=== PATIENT | male | born 1965 | race Caucasian/White ===

== ENCOUNTER → 2018-10-13 15:31 | Outpatient (CLI) | payer OTHER, SELFPAY ==
--- NOTE | 2018-10-13 15:40 | US_ITS ---
US Testicular ORDERING PHYSICIAN : Maria Ines Soto APRN PATIENT AGE: 52 years GENDER: Male HISTORY:ITS.REASON: DYSURIA, PARESTHESIAS COMPARISON: None TECHNIQUE: Routine FINDINGS: Right testicle is 2.3 x 4.7 x 3.0 cm. Left testicle is 2.3 x 4.6 x 2.7 cm. The echogenic appearance of both testicles and epididymal areas appear normal. There is normal blood flow to both testicles. There are no abnormal fluid collections. IMPRESSION: Normal exam. No acute process.
== END ==
PROVIDERS: PCP Nurse Practitioner; Visit Provider Nurse Practitioner
DX: R30.0 Dysuria (principal); R20.2 Paresthesia of skin
CPT/HCPCS: 76870

== ENCOUNTER → 2020-05-22 11:38 | Outpatient (CLI) | payer OTHER, SELFPAY ==
--- NOTE | 2020-05-22 12:10 | XR_ITS ---
PROCEDURE: XR HAND RT MIN 3V CLINICAL INDICATION: RT HAND PAIN/SWELLING COMPARISON: No exams were available for comparison FINDINGS: No fracture or dislocation. No lytic or blastic change. There is normal mineralization. There are osteoarthritic changes at the 2nd and 3rd metacarpophalangeal junction. There is some irregularity of the tuft of the distal phalanx of the 3rd digit which appears chronic. No acute fracture or dislocation. Other findings:None. 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
[2020-05-22 12:31] LABS: Basophils % 0.3 % (0.1-2.0); Eosinophils # 0.1 K/mm3 (0.0-0.4); Hematocrit 46.8 % (42.0-52.0); Hemoglobin 15.7 g/dL (14.1-18.0); Lymphocytes # 1.4 K/mm3 (0.7-4.5); Lymphocytes % 20.6 % (10-50); Mean Corpuscular HGB Conc 33.5 g/dL (31.8-35.4); Mean Corpuscular Hemoglobin 28.8 pg (27.0-31.2); Mean Platelet Volume 8.3 fl (7.4-10.4); Monocytes # 0.3 K/mm3 (0.1-1.0); Neutrophils # 5.1 K/mm3 (1.8-7.8); Neutrophils % 73.1 % (37.0-80.0); Platelet Count 240 K/mm3 (142-424); Red Blood Count 5.44 M/mm3 (4.60-6.20); Red Cell Distribution Width 14.3 % (11.5-17.5); White Blood Count 6.9 K/mm3 (4.8-10.8)
[2020-05-22 13:04] LABS: C-Reactive Protein 1.3 mg/L (0-4)
[2020-05-22 14:28] LABS: Erythrocyte Sedimentation Rate 7 mm/hr (0-20)
[2020-05-23 08:36] LABS: RA Latex Turbid. <10.0 IU/mL (0.0-13.9)
[2020-05-24 14:27] LABS: Antinuclear Antibodies, IFA Positive (.)
== END ==
PROVIDERS: PCP Nurse Practitioner Family; Visit Provider Nurse Practitioner Family
DX: M79.641 Pain in right hand (principal); M79.89 Other specified soft tissue disorders
CPT/HCPCS: 36415; 73130; 84550; 85025; 85651; 86038; 86140; 86431

== ENCOUNTER → 2021-03-27 11:38 | Outpatient (CLI) | payer OTHER, SELFPAY | PROVIDERS: PCP Family Medicine; Visit Provider Nurse Practitioner | DX: Z20.822 Contact with and (suspected) exposure to COVID-19 (principal) | CPT/HCPCS: C9803; U0003; U0005 ==

== ENCOUNTER → 2021-04-12 08:35 | Outpatient (CLI) | payer OTHER, SELFPAY | PROVIDERS: PCP Family Medicine; Visit Provider Nurse Practitioner | DX: U07.1 COVID-19 (principal) | CPT/HCPCS: C9803; U0003; U0005 ==

== ENCOUNTER → 2022-01-07 15:25 | Outpatient (POV) | payer OTHER, SELFPAY | PROVIDERS: Visit Provider Dermatology | DX: Z00.00 Encounter for general adult medical examination without abnormal findings (principal) ==

== ENCOUNTER 2023-12-25 19:38 | Emergency (ER) | payer SELFPAY ==
[2023-12-25 19:48] VITALS: BP 164/87; PULSE 91; RESP 18; TEMP 36.7; O2SAT 99; BMI 28.0
--- NOTE | 2023-12-25 19:50 | ED_ITS ---
Discharge Plan Disposition Patient Disposition: Home, Self-Care Referrals Follow up/Referrals: Emilee Bautista MD [Primary Care Provider] - See instructions Activity Restrictions/Add. Instructions Additional Instructions/Restrictions: Return to PCP for suture removal in 7 to 10 days. Do not get area wet or submerged in water. Make sure to keep dressing on area at all times. Do not put full weight on your foot. Be careful to not pull the stitches out. Any problems or concerns please return to the ED or see your PCP. Clinical Impressions Clinical Impression: Laceration Stand Alone Forms Stand Alone Forms: Work/School Release Instructions Patient Instructions: DI for Laceration Repair Print Language Print Language: Upper Sorbian Discharge ED Provider: Venu Rea Adult HPI <Mirna Soto (ED), [employer] - Last Filed: 12/25/23 21:07> General Chief complaint: Wound/Laceration Stated complaint: AO 12/25/23 8855 laceration Right fourth toe Time Seen by Provider: 12/25/23 19:42 History of Present Illness HPI narrative: 57-year-old male presents to the ED today for complaint of laceration to right fourth posterior toe after stepping on a dog gate. His toe went through the metal on the gate. He has stopped the bleeding and has it wrapped. He has no other complaint today Related Data Allergies Allergy/AdvReac Type Severity Reaction Status Date / Time Penicillin Allergy Unknown Uncoded 04/07/17 14:44 PFSH <Mirna Soto (ED), [employer] - Last Filed: 12/25/23 21:07> [facility] Disclaimer: The information contained in this section may have been updated after the patient was seen, as this information can be updated by other users. Social History (Updated 12/25/23 @ 21:07 by Mirna Soto (ED), [employer]) Smoking Status: Never smoker alcohol intake: current current occupational status: other Travel in the last 8 weeks: None <Mirna Soto (ED), [employer] - Last Filed: 12/25/23 21:07> ROS Obtained: Yes Systems reviewed as appropriate & no additional complaints except as documented Physical Exam <Mirna Soto (ED), [employer] - Last Filed: 12/25/23 21:07> General General appearance: alert and in no apparent distress Head Head exam: atraumatic and normocephalic Eye Eye exam: Present normal appearance, PERRL and EOMI ENT ENT exam: Present normal exam, normal oropharynx and mucous membranes moist Neck Neck exam: Present normal inspection, full ROM and trachea midline Chest Chest inspection: Present normal inspection Respiratory Respiratory exam: Present normal lung sounds bilaterally Cardiovascular Cardiovascular exam: Present regular rate, normal rhythm, normal heart sounds, +S1 and +S2 Extremities Exam Extremities exam: Present full ROM and normal capillary refill Back Exam Back exam: Present normal inspection Neurological Exam Neurological exam: Present alert, oriented X3 and normal gait Skin Skin exam: Present warm, dry, intact and other (laceration to right 4th great toe posterior) Medical Decision Making <Mirna Soto (ED), [employer] - Last Filed: 12/25/23 21:07> [facility] Inquiry Pt receiving controlled substance: No Vital Signs: 12/25/23 19:48 12/25/23 21:15 Temperature 98.1 F 98.1 F Temperature Source Oral Oral Pulse Rate 65 Pulse Rate [Left Radial] 91 H Respiratory Rate 18 18 Blood Pressure 116/81 Blood Pressure [Right Arm] 164/87 H Blood Pressure Mean [Right Arm] 112 Blood Pressure Source Automatic Cuff Blood Pressure Source [Right Arm] Automatic Cuff Blood Pressure Position Sitting Blood Pressure Position [Right Arm] Sitting 02 Sat by Pulse Oximetry 99 Oxygen Delivery Method Room Air Room Air Orders (Tests/Meds): ED MEDICATIONS Discontinued Medications Generic Name Dose Route Start Last Admin Trade Name Freq PRN Reason Stop Dose Admin Tetanus/Reduced Diphtheria/Acell Pertussis 0.5 ml 12/25/23 19:48 12/25/23 19:59 Tet/Diphth/Pert-Adult 0.5ml Syringe IM 12/25/23 19:49 0.5 ml .ONCE ONE Administration ORDERS Category Date Time Status Foot XR right 2 views [XR foot RT 2V] Stat Exams 12/25/23 20:24 Completed Medical Decision Narrative: Insert review patient is a 57-year-old male presenting to the emergency department for evaluation of laceration of right fourth toe. Patient is [hemodynamically stable and nontoxic-appearing upon arrival, afebrile]. Differential diagnosis includes[toe fracture versus laceration among others]. Workup will be conducted including and considering hematological labs but these were not needed as patient was here for a laceration. However we did do an x- ray of his right foot to ensure that he has no fracture. Initial inventions include washing out his laceration with normal saline, ordering an x-ray and so incus laceration.. Initial x-ray reviewed by me preliminary is negative. Official reading was negative. Patient's wound was repaired and dressed and patient is comfortable. Patient given return precautions and he is to return to [facility] for suture removal in 7 to 10 days. <Venu Rea MD - Last Filed: 12/25/23 21:23> Vital Signs: 12/25/23 19:48 12/25/23 21:15 Temperature 98.1 F 98.1 F Temperature Source Oral Oral Pulse Rate 65 Pulse Rate [Left Radial] 91 H Respiratory Rate 18 18 Blood Pressure 116/81 Blood Pressure [Right Arm] 164/87 H Blood Pressure Mean [Right Arm] 112 Blood Pressure Source Automatic Cuff Blood Pressure Source [Right Arm] Automatic Cuff Blood Pressure Position Sitting Blood Pressure Position [Right Arm] Sitting 02 Sat by Pulse Oximetry 99 Oxygen Delivery Method Room Air Room Air Orders (Tests/Meds): ED MEDICATIONS Discontinued Medications Generic Name Dose Route Start Last Admin Trade Name Freq PRN Reason Stop Dose Admin Tetanus/Reduced Diphtheria/Acell Pertussis 0.5 ml 12/25/23 19:48 12/25/23 19:59 Tet/Diphth/Pert-Adult 0.5ml Syringe IM 12/25/23 19:49 0.5 ml .ONCE ONE Administration ORDERS Category Date Time Status Foot XR right 2 views [XR foot RT 2V] Stat Exams 12/25/23 20:24 Completed Medical Decision Narrative: Insert review patient is a 57-year-old male presenting to the emergency department for evaluation of laceration of right fourth toe. Patient is [hemodynamically stable and nontoxic-appearing upon arrival, afebrile]. Differential diagnosis includes[toe fracture versus laceration among others]. Workup will be conducted including and considering hematological labs but these were not needed as patient was here for a laceration. However we did do an x- ray of his right foot to ensure that he has no fracture. Initial inventions include washing out his laceration with normal saline, ordering an x-ray and so incus laceration.. Initial x-ray reviewed by me preliminary is negative. Official reading was negative. Patient's wound was repaired and dressed and patient is comfortable. Patient given return precautions and he is to return to PCP for suture removal in 7 to 10 days. I was consulted by the VIRGIL, and we discussed the complexity of the problems being addressed.I approved the treatment and management plan for this patient?s care in the Emergency Department, thus performing a substantive portion of the medical decision making.Signed, Venu Rea MD Procedures <Mirna Soto (ED), [employer] - Last Filed: 12/25/23 21:07> Laceration Laceration 1: Site: toe Side (If applicable): right Size (cm): 2 Description: clean Depth: simple, single layer Local Anesthetic: lidocaine 1% Amount of anesthesia used (mL): 5 Pre-repair: irrigated extensively Skin layer closed with: vicryl Size (cm): 4-0 Number of sutures: 8 Technique: simple, interrupted Critical Care <Mirna Soto (ED), [employer] - Last Filed: 12/25/23 21:07> Critical Care Time Critical Care Time: No
[2023-12-25] MEDS: TET/DIPHTH/PERT-ADULT 0.5ML SYRINGE 0.5 ML IM (19:59)
--- NOTE | 2023-12-25 20:24 | XR_ITS ---
PROCEDURE INFORMATION: Exam: XR Right Foot Exam date and time: 12/25/2023 8:33 PM Age: 57 years old Clinical indication: Injury or trauma; Other: Laceration; Toes; Right fourth toe; Foreign body involvement not specified; Additional info: Laceration to posterior toe TECHNIQUE: Imaging protocol: Radiologic exam of the right foot. Views: 1 or 2 views. COMPARISON: No relevant prior studies available. FINDINGS: Bones/joints: No acute fracture. No dislocation. Plantar calcaneal enthesophyte. Soft tissues: No radiopaque foreign bodies. IMPRESSION: No fracture. If pain persists, suggest splinting and follow up radiographs in 7-10 days.
[2023-12-25 21:15] VITALS: BP 116/81; PULSE 65; RESP 18; TEMP 36.7; O2SAT 96
== END 2023-12-25 21:20 | disposition home or self-care (01) ==
PROVIDERS: Emergency Provider Emergency Medicine; PCP Family Medicine
DX: S91.114A Laceration without foreign body of right lesser toe(s) without damage to nail, initial encounter (principal); W26.8XXA Contact with other sharp object(s), not elsewhere classified, initial encounter; Y92.9 Unspecified place or not applicable
CPT/HCPCS: 12001; 73620; 90471; 90715; 99283